=== PATIENT | male | born 1970 | race Caucasian/White ===

== ENCOUNTER 2019-02-23 | Emergency (ER) | payer BC ==
--- NOTE | 2019-02-23 20:31 | ED ---
General Adult HPI - General Chief complaint: Skin/Abscess/Foreign Body Stated complaint: foot swelling Time Seen by Provider: 02/23/19 20:08 Source: patient Mode of arrival: ambulatory Limitations: no limitations - History of Present Illness Initial comments: Patient is a 49-year-old male presenting to emergency Department with left foot redness and swelling. Patient reports a mild abrasion on his right second toe and he went swimming in the [place] yesterday. Patient reports today he developed erythema and swelling and his first second and third MCP joints. Patient reports the swelling and erythema has decreased since the incident occurred. Patient denies taking [id number] medications. Patient reports full range of motion and no pain at this moment. Patient denies discharge or ecchymosis. Patient denies fever, nausea or vomiting. Patient denies trauma to the right foot. Patient denies gout - Related Data Home Medications Medication Instructions Recorded Confirmed Aspirin 81 mg PO W/LUNCH 11/15/17 11/15/17 Flaxseed Oil [[place]-3 Flaxseed Oil] 1,000 mg PO W/LUNCH 11/15/17 11/15/17 [place]-3 Fatty Acids/Fish Oil [Fish 1 cap PO W/LUNCH 11/15/17 11/15/17 Oil 1,000 mg Softgel] Rosuvastatin [Crestor] 10 mg PO HS 11/15/17 11/15/17 Previous Rx's Medication Instructions Recorded HYDROcodone/APAP 10-325MG [[place] 1 tab PO Q6H PRN #15 tab 11/15/17 10-325] Cephalexin [Keflex] 500 mg PO Q6HR #40 cap 02/23/19 Allergies Allergy/AdvReac Type Severity Reaction Status Date / Time bee pollen Allergy Anaphylaxis Verified 02/23/19 19:32 Review of Systems ROS Statement: Those systems with pertinent positive or pertinent negative responses have been documented in the HPI. ROS Other: All systems not noted in ROS Statement are negative. Past Medical History Past Medical History: Hyperlipidemia History of Any Multi-Drug Resistant Organisms: None Reported Past Surgical History: No Surgical Hx Reported Past Psychological History: No Psychological Hx Reported Smoking Status: Never smoker Past Alcohol Use History: Occasional Past Drug Use History: None Reported General Exam - General Exam Comments Initial Comments: General: Well-developed well-nourished distress HEENT: Normocephalic/atraumatic, PERLL, pharynx erythema, swallowing well, EAC no erythema, no exudates, TM clear, no cervical lymph nodes Neck: Supple, nontender, trachea midline Chest/Lungs: Normal respirations, no signs of respiratory distress clear to auscultation bilaterally no wheezes, rales, rhonchi Cardiac: Regular rate and rhythm, normal S1-S2, no murmurs rubs or gallops Abdomen/GI: Soft nontender, bowel sounds equal or quadrant x4, no guarding, no rebound no CVA tenderness Musculoskeletal: Nontender, full range of motion, abrasion noted on his right second toe but no discharge, poor bony development of the right second toe, mild erythema and edema at the first MTP joint, no erythema noted on right foot, +2 dorsalis pedis and posterior tibialis bilaterally, full range of motion of toes of the right foot. Skin: Warmth, no rashes or lesions, no cyanosis or diaphoresis Neurologic: AAO x 3, CN 2-12 intact, Psychiatric: Mood and affect normal, judgment normal Limitations: no limitations Course Vital Signs 02/23/19 02/23/19 19:29 20:37 Temperature 98.2 F 98.2 F Pulse Rate 70 70 Respiratory 18 18 Rate Blood Pressure 151/84 151/84 O2 Sat by Pulse 98 98 Oximetry Medical Decision Making - Medical Decision Making Patient is a 49-year-old male presenting to emergency Department with right toe swelling and redness. Based on history and physical examination the toes of the right foot do not appear to be inflamed. Only mild edema noted at the first MTP joint. Patient doesn't have a history of gout. Patient has full range of motion of all of his toes. Patient has an abrasion on the right second toe but no signs of infection are present or drainage. At this point I have low suspicion for infection but the patient will be treated prophylactically for possible cellulitis with Keflex. Strict return parameters were thoroughly discussed with patient who is understanding and agreeable. Patient advised to follow-up with primary care. Case discussed with physician. Disposition Clinical Impression: Swelling of toe of right foot Disposition: HOME SELF-CARE Condition: Stable Instructions (If sedation given, give patient instructions): Cellulitis (DC) Additional Instructions: Please follow up with primary care. Please see prescribe medication as directed. Please return to emergency department if symptoms worsen. Prescriptions: Cephalexin [Keflex] 500 mg PO Q6HR #40 cap Is patient prescribed a controlled substance at d/c from ED?: No Referrals: Abdulaziz Jaramillo MD [Primary Care Provider] - 1-2 days Time of Disposition: 20:31
== END 2019-02-23 20:41 | disposition home or self-care (01) ==
CPT/HCPCS: 99283

== ENCOUNTER → 2019-06-23 | Outpatient (CLI) | payer BC ==
[2019-06-23 16:22] LABS: Chol/HDL Ratio 4.46; LDL Cholesterol,Calculated 130.6 mg/dL (0.0-131.0); VLDL Calculation 28.4 mg/dL (5.00-40.00)
[2019-06-23 17:37] LABS: Hemoglobin A1C 5.5 % (4.0-6.0)
== END | disposition home or self-care (01) ==
LOC: LABWHC1 07:08
PROVIDERS: ATTEND Internal Medicine Interventional Cardiology
DX: E78.5 Hyperlipidemia, unspecified (principal)
CPT/HCPCS: 36415; 80061; 82550; 82947; 83036; 84450; 84460

== ENCOUNTER → 2019-07-06 | Outpatient (CLI) | payer BC ==
[2019-07-06 08:11] LABS: Basophils # (A) 0.1 k/uL (0-0.2); Basophils % (A) 1 %; Eosinophils # (A) 0.3 k/uL (0-0.7); Eosinophils % (A) 4 %; HCT 45.5 % (39.0-53.0); HGB 15.6 gm/dL (13.0-17.5); Lymphocytes # (A) 2.6 k/uL (1.0-4.8); Lymphocytes % (A) 32 %; MCH 29.9 pg (25.0-35.0); MCHC 34.3 g/dL (31.0-37.0); MCV 87.3 fL (80.0-100.0); Mean Platelet Volume 10.3; Monocytes # (A) 0.5 k/uL (0-1.0); Monocytes % (A) 6 %; Neutrophils # (A) 4.5 k/uL (1.3-7.7); Neutrophils % (A) 55 %; Platelet Count 207 k/uL (150-450); RBC 5.21 m/uL (4.30-5.90); RDW 12.8 % (11.5-15.5); WBC 8.1 k/uL (3.8-10.6)
[2019-07-06 10:32] LABS: African American GFR (CKD) 101.3 (60.0-200.0); Albumin 4.6 g/dL (3.80-4.90); Calcium 9.8 mg/dL (8.7-10.3); Globulin 2.3 g/dL (1.6-3.3); Non-African American GFR(CKD) 87.4 (60.0-200.0); Potassium 4.4 mmol/L (3.5-5.5); Total Bilirubin 0.5 mg/dL (0.2-1.2); Total Protein 6.9 g/dL (6.2-8.2)
[2019-07-06 11:37] LABS: Hemoglobin A1C 5.6 % (4.0-6.0)
== END | disposition home or self-care (01) ==
LOC: LABWHC1 07:13
PROVIDERS: ATTEND Family Medicine
DX: Z00.00 Encounter for general adult medical examination without abnormal findings (principal); Z79.899 Other long term (current) drug therapy
CPT/HCPCS: 36415; 80053; 83036; 84153; 84443; 85025

== ENCOUNTER → 2019-10-07 | Day surgery (SDC) | payer BC ==
[2019-10-05 10:02] VITALS: BMI 29.8
[~2019-10-07] MED LIST: LACTATED RINGERS 1,000 ML IV SCH; LIDOCAINE 1% (10MG/ML) FOR IV START INTRADERMA PRN; LIDOCAINE 1% INJ 10MG/ML (20 ML MDV) ONE; PROPOFOL 10 MG/ML 20 ML VIAL IV ONE
[2019-10-07 11:44] VITALS: TEMP 97.7
--- NOTE | 2019-10-07 12:51 | P.GSHP ---
History of Present Illness H&P Date: 10/07/19 Chief Complaint: Colon cancer screening Patient today for colonoscopy. He has not had one previously. No bowel related complaints. No family history of colon cancer. Past Medical History Past Medical History: Hyperlipidemia History of Any Multi-Drug Resistant Organisms: None Reported Past Surgical History: No Surgical Hx Reported Past Anesthesia/Blood Transfusion Reactions: No Reported Reaction Smoking Status: Never smoker - Past Family History Mother Family Medical History: No Reported History Medications and Allergies Home Medications Medication Instructions Recorded Confirmed Type Rosuvastatin [Crestor] 10 mg PO HS 11/15/17 10/05/19 History Allergies Allergy/AdvReac Type Severity Reaction Status Date / Time bee pollen Allergy Anaphylaxis Verified 10/07/19 11:44 Surgical - Exam Vital Signs Temp Pulse Resp BP Pulse Ox 97.7 F 80 16 143/91 98 10/07/19 11:42 10/07/19 11:42 10/07/19 11:42 10/07/19 11:42 10/07/19 11:42 Physical exam: General: Well-developed, well-nourished HEENT: Normocephalic, sclerae nonicteric Abdomen: Nontender, nondistended Extremities: No edema Neuro: Alert and oriented Assessment and Plan (1) Colon cancer screening Narrative/Plan: Will proceed with colonoscopy at this time Current Visit: Yes Status: Acute Code(s): Z12.11 - ENCOUNTER FOR SCREENING FOR MALIGNANT NEOPLASM OF COLON SNOMED Code(s): 646158159
--- NOTE | 2019-10-07 13:05 | P.PCN ---
Date of Procedure: 10/07/19 Procedure(s) Performed: PREOPERATIVE DIAGNOSIS: Colon cancer screening POSTOPERATIVE DIAGNOSIS: Normal exam PROCEDURE: Colonoscopy ANESTHESIA: MAC SURGEON: Luis Alberto Damico M.D. SPECIMENS: None ENDOSCOPIC PROCEDURE: The patient was placed on the endoscopy table in the left decubitus position. The Olympus colonoscope was inserted into the anus and passed under direct visualization to the base of the cecum. The appendiceal orifice was visualized. From that point the scope was slowly withdrawn inspecti ng all surfaces carefully. There were no neoplastic inflammatory or polypoid lesions throughout the cecum, ascending, transverse, descending, sigmoid and rectum. There was no visible diverticulosis noted. Digital rectal examination was normal. The patient was taken to the recovery room in stable condition per anesthesia guidelines. RECOMMENDATIONS: Increase fiber. Follow-up colonoscopy 10 years.
[2019-10-07 13:26] VITALS: BP 136/90; PULSE 75; RESP 18
== END ==
LOC: ORWHC2ENDO 11:12
PROVIDERS: ATTEND Surgery
DX: Z12.11 Encounter for screening for malignant neoplasm of colon (principal); E78.5 Hyperlipidemia, unspecified; Z79.899 Other long term (current) drug therapy; Z91.030 Bee allergy status
CPT/HCPCS: J2001; J2704; G0121

== ENCOUNTER → 2020-05-10 | Outpatient (CLI) | payer BC ==
[2020-05-11 01:51] LABS: Chol/HDL Ratio 3.43; LDL Cholesterol,Calculated 97.8 mg/dL (0.0-131.0); VLDL Calculation 26.2 mg/dL (5.00-40.00)
== END | disposition home or self-care (01) ==
LOC: LABWHC1 07:50
PROVIDERS: ATTEND Internal Medicine Interventional Cardiology
DX: E78.2 Mixed hyperlipidemia (principal)
CPT/HCPCS: 36415; 80061; 82550; 84450; 84460

== ENCOUNTER → 2021-05-08 | Outpatient (CLI) | payer BC ==
[2021-05-08 08:37] LABS: HCT 42.9 % (39.0-53.0); HGB 14.8 gm/dL (13.0-17.5); MCH 30.2 pg (25.0-35.0); MCHC 34.5 g/dL (31.0-37.0); MCV 87.7 fL (80.0-100.0); Mean Platelet Volume 9.9; Platelet Count 189 k/uL (150-450); RBC 4.89 m/uL (4.30-5.90); RDW 12.8 % (11.5-15.5)
--- NOTE | 2021-05-08 09:57 | CT ---
EXAMINATION TYPE: CT heart w calcium score DATE OF EXAM: 05/08/2021 COMPARISON: None HISTORY: Screening for cardiovascular disorder. 213.9 CT DLP: 69.6 mGycm Automated exposure control for dose reduction was used. CT CALCIUM SCORING Coronary calcium is a marker for plaque (fatty deposits) in a blood vessel or atherosclerosis (harden ing of the arteries). The presence and amount of calcium detected in a coronary artery by the CT sca n, indicates the presence and amount of atherosclerotic plaque. These calcium deposits appear years before the development of heart disease symptoms such as chest pain and shortness of breath. A calcium score is computed for each of the coronary arteries based upon the volume and density of th e calcium deposits. This can be referred to as your calcified plaque burden. It does not correspond directly to the percentage of narrowing in the artery but does correlate with the severity of the un derlying coronary atherosclerosis. PROCEDURE TECHNIQUE - Prospective Gating was used. Slice thickness: 3mm. Density threshold (HU): 130, Pixel threshold: 3, Algorithm: discrete. RESULTS Region: LAD Calcium Score ([place]): 102.33 Volume (mm3): 92.2 Mass (g): 30.73 Region: CX Calcium Score ([place]): 109.32 Volume (mm3): 92.2 Mass (g): 30.73. Region: Diagonal branch Calcium Score ([place]): 75.46 Volume (mm3): 59.63 Mass (g): 19.88. Total: Calcium Score ([place]): 287.11 Volume (mm3): 244.04 Mass (g): 81.35 Remaining vessels appear clear. TOTAL CALCIUM SCORE: 287.11 IMPRESSION: Calcium Score: 287.11 Implication: Definite, at least mild atherosclerotic plaque Risk of Coronary Artery Disease: Mild or minimal coronary artery narrowing likely. Impression: 1. Mild increased risk for coronary vessel narrowing. CALCIUM SCORE IMPLICATION RISK OF C ORONARY ARTERY DISEASE 0 No identifiable plaque Very low, generally less than 5% 1-10 Minimal identifiable plaque Very unlikely, less than 10% 11-100 Definite, at least mild atherosclerotic plaque Mild or m inimal coronary narrowings likely 101-400 Definite, at least moderate atherosclerotic plaque Mild coronary ar liana disease highly likely, significant narrowing possible 401 or Higher Extensive atherosclerotic plaque High lik elihood of at least one significant coronary narrowing
[2021-05-08 11:54] LABS: Chol/HDL Ratio 4.33 Ratio; HDL Cholesterol 52.4 mg/dL (40.00-60.00); LDL Cholesterol,Calculated 138.6 mg/dL (0.0-131.0); Prostate Specific Antigen 0.4 ng/mL (0.00-3.50)
[2021-05-08 17:14] LABS: African American GFR (CKD) 114.5 (60.0-200.0); Albumin 4.5 g/dL (3.8-4.9); Anion Gap 15.1 mmol/L (4.00-12.00); Calcium 9.7 mg/dL (8.7-10.3); Carbon Dioxide 20.1 mmol/L (21.6-31.8); Non-African American GFR(CKD) 98.8 (60.0-200.0); Potassium 4.7 mmol/L (3.5-5.5); Total Bilirubin 0.4 mg/dL (0.30-1.20)
== END | disposition home or self-care (01) ==
LOC: RADCTMAIN 07:49
PROVIDERS: ATTEND Family Medicine
DX: I65.8 Occlusion and stenosis of other precerebral arteries (principal); E78.00 Pure hypercholesterolemia, unspecified
CPT/HCPCS: 36415; 75571; 80053; 80061; 83036; 84153; 84443; 85027

== ENCOUNTER → 2022-03-27 | Outpatient (CLI) | payer BC ==
[2022-03-27 15:22] LABS: Prostate Specific Antigen 0.3 ng/mL (0.00-3.50)
== END | disposition home or self-care (01) ==
LOC: LABWHC1 07:22
DX: I25.10 Atherosclerotic heart disease of native coronary artery without angina pectoris (principal); I10 Essential (primary) hypertension; E78.2 Mixed hyperlipidemia
CPT/HCPCS: 36415; 82947; 84153

== ENCOUNTER → 2022-04-20 | Outpatient (CLI) | payer BC | END | disposition home or self-care (01) | LOC: LABWHC1 09:48 | PROVIDERS: ATTEND Family Medicine | DX: Z01.812 Encounter for preprocedural laboratory examination (principal) | CPT/HCPCS: 87070 ==

== ENCOUNTER → 2022-04-27 | Outpatient (CLI) | payer BC ==
[2022-04-27 17:49] LABS: INR 0.9 (<1.2); Partial Thromboplastin Time 24.1 sec (22.0-30.0); Prothrombin Time 10.4 sec (9.0-12.0)
== END | disposition home or self-care (01) ==
LOC: LABWHC1 13:16
PROVIDERS: ATTEND Orthopaedic Surgery Sports Medicine
DX: M16.11 Unilateral primary osteoarthritis, right hip (principal)
CPT/HCPCS: 36415; 85610; 85730

== ENCOUNTER → 2023-05-23 | Outpatient (CLI) | payer BC ==
--- NOTE | 2023-05-23 10:19 | CT ---
EXAMINATION TYPE: CT chest wo con CT DLP: 517.80 mGycm, Automated exposure control for dose reduction was used. DATE OF EXAM: 05/23/2023 10:09 AM COMPARISON: Chest radiograph from 04/05/2023 CLINICAL INDICATION:Male, 53 years old with history of J44.9 copd, R06.00 dyspnea; PHH, COPD, Dyspnea TECHNIQUE: Multiple axial images were obtained through the chest without IV contrast. Lack of IV or o ral contrast limits evaluation of solid and hollow organ viscera. . Coronal and sagittal reformats re viewed. FINDINGS: LUNGS/ PLEURA: No pleural effusion, pneumothorax, focal consolidation. No suspicious pulmonary nodule mass. No evidence of emphysematous changes or fibrotic changes. No evidence for interstitial lung di sease. AIRWAY: Patent and unremarkable.. HEART: Mildly enlarged. No pericardial effusion.. Mild coronary artery calcifications. MEDIASTINUM: No evidence of adenopathy. VASCULATURE: No aortic aneurysm. MUSCULOSKELETAL: No acute osseous abnormalities SOFT TISSUES/LYMPH NODES: Unremarkable. LOWER NECK: No significant findings. UPPER ABDOMEN: No significant findings. IMPRESSION: 1. No acute thoracic process. 2. Mild cardiomegaly.
== END | disposition home or self-care (01) ==
LOC: RADCTMAIN 09:19
PROVIDERS: ATTEND Family Medicine
DX: J44.9 Chronic obstructive pulmonary disease, unspecified (principal); I51.7 Cardiomegaly; R06.00 Dyspnea, unspecified
CPT/HCPCS: 71250

== ENCOUNTER → 2024-02-11 | Outpatient (CLI) | payer BC ==
[2024-02-11 11:52] LABS: ALT 49 U/L (10-49); AST 31 U/L (14-35); Albumin 4.8 g/dL (3.8-4.9); Alkaline Phosphatase 74 U/L (41-126); BUN/Creat Ratio 20.11 Ratio (12.00-20.00); Blood Urea Nitrogen 18.1 mg/dL (9.0-27.0); Calcium 9.7 mg/dL (8.7-10.3); Carbon Dioxide 24.2 mmol/L (21.6-31.8); Chloride 103 mmol/L (96-109); Chol/HDL Ratio 2.72 Ratio; Creatine Kinase 205 U/L (35-257); Globulin 2.4 g/dL (1.6-3.3); Glucose 111 mg/dL (70-110); LDL Cholesterol,Calculated 61.9 mg/dL (0.0-131.0); Potassium 4.5 mmol/L (3.5-5.5); Sodium 139 mmol/L (135-145); Total Bilirubin 0.6 mg/dL (0.3-1.2); Total Protein 7.2 g/dL (6.2-8.2)
== END | disposition home or self-care (01) ==
LOC: LABWHC1 07:46
PROVIDERS: ATTEND Internal Medicine Cardiovascular Disease
DX: I25.10 Atherosclerotic heart disease of native coronary artery without angina pectoris (principal); I10 Essential (primary) hypertension; E78.2 Mixed hyperlipidemia
CPT/HCPCS: 36415; 80053; 80061; 82550

== ENCOUNTER → 2024-08-10 | Outpatient (CLI) | payer BC ==
[2024-08-10 10:30] LABS: ALT 45 U/L (10-49); AST 25 U/L (14-35); Chol/HDL Ratio 2.64 Ratio; Creatine Kinase 113 U/L (35-257); LDL Cholesterol,Calculated 61.1 mg/dL (0.0-131.0)
== END | disposition home or self-care (01) ==
LOC: LABWHC1 07:11
PROVIDERS: ATTEND Internal Medicine Cardiovascular Disease
DX: I25.10 Atherosclerotic heart disease of native coronary artery without angina pectoris (principal)
CPT/HCPCS: 36415; 80061; 82550; 84450; 84460

== ENCOUNTER → 2025-02-09 | Outpatient (CLI) | payer BC ==
[2025-02-09 11:57] LABS: ALT 44 U/L (10-49); AST 29 U/L (14-35); Cholesterol 165.00 mg/dL (0.00-200.00); Creatine Kinase 166 U/L (35-257); HDL Cholesterol 57.40 mg/dL (40.00-60.00); LDL Cholesterol,Calculated 82.2 mg/dL (0.0-131.0); Triglycerides 127.00 mg/dL (0.00-149.00); VLDL Calculation 25.40 mg/dL (5.00-40.00)
== END | disposition home or self-care (01) ==
LOC: LABWHC1 07:00
PROVIDERS: ATTEND Internal Medicine Cardiovascular Disease
DX: I25.10 Atherosclerotic heart disease of native coronary artery without angina pectoris (principal)
CPT/HCPCS: 36415; 80061; 82550; 84450; 84460